=== PATIENT | male | born 1955 | race Caucasian/White ===

== ENCOUNTER 2017-01-26 06:24 | Observation (INO) | payer OTHER ==
--- NOTE | ~2017-01-26 | HP ---
History And Physical [address] [place]. [address] NAME: SEBLE SURESH : 51 STATUS : ADM Ruma PAT#: [id number] AGE: 61 ADM/REG DATE : 01/26/17 MR#: [id number] REPORT SERV DATE: 01/26/17 DICTATED BY: DATE: REPORT STATUS : Draft TRANSCRIBED BY: MODL DATE: 01/26/17 DATE OF ADMISSION: 01/26/2017 PRIMARY CARE PHYSICIAN: Denies having one. CHIEF COMPLAINT: Chest pain. HISTORY OF PRESENT ILLNESS: This is a very pleasant 61-year-old white male without any cardiac history who reports to have been woken up in the middle of the night with sharp, severe chest pain and pressure 10/10 across his chest that radiated to his left shoulder blade and left arm. He reports to have had some shortness of breath during his event. The patient received nitro in the ambulance and reports the pain had decreased but not completely resolved at that point. The patient denies having any nausea, vomiting, abdominal pain, diaphoresis, orthopnea, or edema. He reports that he had chest pain, 6/10, this morning. The nurse followed the chest pain protocol, and after three of nitroglycerin and two of morphine, his pain resolved and was down to 0/10. The patient denies any personal history of myocardial infarctions, strokes, DVT, or pulmonary embolus. The patient denies any recent fever or chills. No palpitations. No syncopal episodes. Denies PND or orthopnea. PAST MEDICAL HISTORY: He denies having any. PAST SURGICAL HISTORY: Tonsillectomy and adenoidectomy. 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 He is and has one child. He smokes about one pack every day and a half x40 years. He is a current smoker. He denies any alcohol use. He denies any illicit drug use. FAMILY MEDICAL HISTORY: He denies any cardiac history. REVIEW OF SYSTEMS: A 14-point review of systems was performed, significant for HPI. No other contributory diagnoses identified. ALLERGIES: PENTAZOCINE LACTATE FROM TALWIN, REACTION UNKNOWN. HOME MEDICATIONS: The patient denies taking any medications. PHYSICAL EXAMINATION: VITAL SIGNS: Blood pressure 177/73, heart rate 71, temperature 97.9, respirations 16, O2 saturation 93%. GENERAL: Cooperative, in no apparent distress. HEENT: Head normocephalic, anicteric. Normal EOM. PERRLA. No xanthelasma. Nares patent. Moist mucous membranes. History And Physical [address] [place]. [address] NAME: SEBLE SURESH : 51 STATUS : ADM Ruma PAT#: [id number] AGE: 61 ADM/REG DATE : 01/26/17 MR#: [id number] REPORT SERV DATE: 01/26/17 DICTATED BY: DATE: REPORT STATUS : Draft TRANSCRIBED BY: MODL DATE: 01/26/17 NECK: Trachea midline. No thyromegaly, JVD or bruits. RESPIRATORY: Clear to auscultation bilaterally anterior and posterior. Respirations even and unlabored. No wheezes, rhonchi or crackles. CARDIOVASCULAR: Regular rate and rhythm. No murmur, rub or gallop appreciated. No chest wall tenderness to palpation. CHEST: Mild chest tenderness to palpation. ABDOMEN: Obese, soft, nontender, nondistended, normal bowel sounds auscultated throughout. No masses or organomegaly. EXTREMITIES: No peripheral edema. DP/PT and radial pulses palpable bilaterally. No clubbing or cyanosis. SKIN: Warm, dry and intact. Normal turgor. No pallor or cyanosis. NEURO/PSYCH: Alert, oriented x3 with no acute distress. Affect appropriate to current situation. LABORATORY DATA: Troponin x2 0.04 and 0.03. Sodium 139, potassium 4.4, BUN 24, creatinine 1.10, GFR 82, glucose 96, calcium 9.6, magnesium 2.3. White blood cells 8.1, hemoglobin 13.1, hematocrit 39.6, platelets 296. INR 1.1. Chest x-ray shows no acute cardiopulmonary disease. EKG done on 01/26/2017 at 9:06 shows sinus rhythm with ST and T-wave abnormalities in the inferior and anterolateral leads. This could possibly be chronic. The patient did say that he was told at one point that he did have a heart attack in the past. The patient has not gone to a chemical laboratory scientist in the past or had any workup. classroom monitor shows sinus justin at 58. No ectopy, no arrhythmias, no pauses. CTA of the chest shows no CTA evidence of pulmonary embolus. No active pulmonary disease. Upper normal lymph nodes in the upper abdomen adjacent to the common hepatic artery branch of the celiac axis and in the precaval region, of uncertain clinical significance. ASSESSMENT AND PLAN: 1. Atypical chest pain. Cardiac risk factors include tobacco use. Troponins x2 have been less than 0.04. EKG shows possible chronic changes. The patient has been observed in the CP to rule out myocardial infarction with serial enzymes and serial EKGs. We will do another cardiac enzyme in the morning. If the cardiac enzymes are negative and no chest pain, we will plan an MPI in the morning. If the MPI is done and shows no ischemia or low risk, the patient may be discharged home. If the cardiac enzymes are abnormal in the morning or the patient has recurrent chest pain, we might plan a COA in the morning. If the MPI is done and if anything is suggestive of ischemia, Cardiology referral will be initiated. We will start the patient on aspirin 81 mg p.o. daily and Lipitor 40 mg p.o. daily. If the MPI is negative and shows no ischemia, the patient may be discharged home. We will try to arrange a followup with a PCP of the patient's choice in one to two weeks with all the studies being sent to that office. We will also check the patient's lipid panel. 2. Tobacco abuse. We discussed smoking cessation. 3. Hypertension. Blood pressure is 170s over 70s. We will start the patient on lisinopril 10 mg p.o. daily. We will also continue to monitor the patient's blood pressure. History And Physical [address] [address] NAME: SEBLE SURESH : 51 STATUS : ADM Ruma PAT#: [id number] AGE: 61 ADM/REG DATE : 01/26/17 MR#: [id number] REPORT SERV DATE: 01/26/17 DICTATED BY: DATE: REPORT STATUS : Draft TRANSCRIBED BY: MODIda DATE: 01/26/17 EKS/MODL Temitope Derw APN / [id number] CC: Janeth Swanson, MSN, CONCR[employer]ODUCTS DISPATCHER-BC
[2017-01-26 05:12] LABS: BASOPHILS 0.7 %; BASOPHILS ABSOLUTE 0.06 10/3/uL (0.0-0.16); EOSINOPHILS ABSOLUTE 0.16 10/3/uL (0.0-0.53); HEMATOCRIT 39.6 % (40.0-51.0); HEMOGLOBIN 13.1 g/dL (13.6-17.8); IMMATURE GRANULOCYTES 0.2 %; IMMATURE GRANULOCYTES ABSOLUTE 0.02 10/3/uL (0.0-0.11); LYMPHOCYTES ABSOLUTE 2.52 10/3/uL (0.67-4.30); MEAN CORPUS HGB CONC 33.1 g/dL (32.0-36.0); MEAN CORPUSCULAR HEMOGLOB 32.3 pg (26.0-34.0); MEAN CORPUSCULAR VOLUME 97.5 fL (80-100); MEAN PLATELET VOLUME 9.3 fL (9.2-13.0); MONOCYTES 4.3 %; MONOCYTES ABSOLUTE 0.35 10/3/uL (0.21-1.20); NEUTROPHILS 61.8 %; NEUTROPHILS ABSOLUTE 5.01 10/3/uL (2.02-8.40); PLATELET COUNT 296 10/3/uL (150-400); RBC DISTRIBUTION WIDTH 15.9 % (12.0-16.0); RED CELL COUNT 4.06 10/6/uL (4.7-6.1); WHITE BLOOD CELLS 8.1 10/3/uL (4.5-10.5)
[2017-01-26 05:13] LABS: MANUAL DIFF NO %
[2017-01-26 05:19] LABS: INTERNATIONAL NORMAL RATI 1.1 UNITS (-); PROTIME (NOT ORD) 14.4 SEC (12.0-14.5)
[2017-01-26 05:27] LABS: BUN (BLOOD UREA NITROGEN) 24 MG/DL (6-23); CALCIUM, SERUM 9.6 MG/DL (8.5-10.4); CHEST PAIN PROFILE TAT 0 Hrs 21 Mins; CHLORIDE, SERUM 107 MMOL/L (96-112); CO2 (CARBON DIOXIDE) 29 MMOL/L (24-34); GFR AFRICAN AMERICAN 82 ML/MIN (>=60); GFR NON AFRICAN AMERICAN 71 ML/MIN (>=60); GLUCOSE, SERUM 96 MG/DL (60-99); POTASSIUM, SERUM 4.4 MMOL/L (3.5-5.3); SODIUM, SERUM 139 MMOL/L (135-148); TROPONIN I 0.04 NG/ML (<0.05)
[2017-01-26 14:13] LABS: TROPONIN I 0.04 NG/ML (<0.05)
[2017-01-26 17:43] LABS: CHOL/HDL RATIO(NOT ORDER) 9.2 (0-5)
[2017-01-27 05:38] LABS: CPK 66 U/L (0-200); TROPONIN I 0.03 NG/ML (<0.05)
[2017-01-27 05:40] LABS: CK-MB 1.3 NG/ML
[2017-01-27] MEDS ORDERED: PRIN10 PO (10:18)
[2017-01-27] MEDS ORDERED: HALF81 PO (10:19)
[2017-01-27] MEDS ORDERED: PRAVAC PO (10:19)
== END 2017-01-27 11:46 | disposition home or self-care (01) ==
LOC: ER 06:24 → CDU1 07:45 → CDU2 07:59
PROVIDERS: Clinical Nurse Specialist; Hospitalist; Nurse Practitioner Family
DX: R07.89 Other chest pain (principal); I10 Essential (primary) hypertension; K21.9 Gastro-esophageal reflux disease without esophagitis; M19.90 Unspecified osteoarthritis, unspecified site; J44.9 Chronic obstructive pulmonary disease, unspecified; F17.210 Nicotine dependence, cigarettes, uncomplicated; Z88.8 Allergy status to other drugs, medicaments and biological substances; Z98.890 Other specified postprocedural states
CPT/HCPCS: 71010; 71275; 78452; 80048; 80061; 82550; 82553; 83735; 84484; 85025; 85610; 85730; 93005; 93017; 96374; 96375; 96376; 99285; A9270-GY; A9502; G0378; J0153; J2405; Q9967

== ENCOUNTER 2017-02-20 03:47 | Inpatient (IN) | payer OTHER ==
--- NOTE | ~2017-02-20 | CN ---
Consultation Report [facility] [address] [place]. [address] NAME: SEBLE MICHAEL : 51 STATUS : ADM IN PAT#: [id number] AGE: 61 ADM/REG DATE : 02/20/17 MR#: [id number] REPORT SERV DATE: 02/20/17 DICTATED BY: WYATT MEJÍA DATE: 02/20/17 REPORT STATUS : Draft TRANSCRIBED BY: MODIda DATE: 02/20/17 GI CONSULTATION DATE OF CONSULTATION: 02/20/2017 REASON FOR CONSULTATION: Evaluation and management of abdominal pain, abnormal CT scan with gastric wall thickening. HISTORY OF PRESENT ILLNESS: Mr. Michael is a pleasant 61-year-old male patient, who was admitted on the with a chief complaint of abdominal pain. He gives a history of symptom onset roughly six months ago. He began having episodic abdominal discomfort. He states he would have episodes where he would have severe epigastric pain with bloating, decreased appetite with some indigestion type symptoms. They would go away. He would feel fine for a period of time, only to have his symptoms recur. He notes that he has lost around 30 pounds since 08/2016. He states that he typically does not have nausea, but over the last three to four days, he has experienced some nausea with "hot liquid" going back up into his throat. Secondary to intense pain, he came into the hospital for further evaluation. He does have a history of recent admission in 01/2017 for chest pain and he states the symptoms are similar to what he had in January. He was worked up in the clinical decision unit by the Cardiac team for atypical chest pain. He was started on aspirin. He takes Lipitor and he is on a blood pressure medication now. He had a CT scan of the abdomen and pelvis when he was admitted without contrast, which showed a normal pancreas, no ductal dilatation. The appendix demonstrated a large amount of radiopaque material and gas. No inflammation. There was diverticulosis, but no diverticulitis. Also, had a mildly indistinct appearance of the gallbladder wall and some mild indistinctness around the stomach and pyloric channel as well as incidental umbilical fatty hernia and a focal short length 3-cm aneurysm. He did undergo a gallbladder ultrasound this morning, which showed cholelithiasis, otherwise, negative ultrasound of the gallbladder. His liver enzymes, total bilirubin 0.1, alkaline phosphatase 70, ALT 29, AST 35, lipase normal at 206. I have discussed with the patient. We will plan on upper endoscopy tomorrow. I did discuss the risks, benefits, alternatives, and complications for him to include, but not limited to risk of bleeding, perforation, infection, reaction to medications as well as cardiac and pulmonary side effects. He is agreeable to proceed. PAST MEDICAL HISTORY: Hypertension, elevated triglycerides, elevated cholesterol, cholelithiasis, COPD, with tobacco abuse. SOCIAL HISTORY: 60-70 pack year history, he states he smokes one pack per day. No alcohol or illicits. He does work at [employer]. FAMILY HISTORY: He denies any GI malignancies. SURGICAL HISTORY: Tonsillectomy, adenoidectomy. Consultation Report [address] [place]. [address] NAME: SEBLE MICHAEL : 51 STATUS : ADM IN [facility]#: [id number] AGE: 61 ADM/REG DATE : 02/20/17 MR#: [id number] REPORT SERV DATE: 02/20/17 DICTATED BY: WYATT MEJÍA DATE: 02/20/17 REPORT STATUS : Draft TRANSCRIBED BY: YANA DATE: 02/20/17 ALLERGIES: TALWIN. HOME MEDICATIONS: Aspirin, Proventil, and Pravachol. REVIEW OF SYSTEMS: A 10-point review of systems has been obtained with pertinent positives being addressed in the history of present illness. PERTINENT LABORATORY DATA: Sodium 134, potassium 4.1, BUN is 28, creatinine is 1.15. White count 9.1, hemoglobin 12.5, hematocrit 36.9, platelet count is 348 with an INR of 1.2. PHYSICAL EXAMINATION: VITAL SIGNS: Temperature 98, pulse 66, respirations 18, blood pressure is 117/64. GENERAL: Alert, male, resting in bed, with no focal deficits. In general, cooperative, in no apparent distress. Awake, alert, and oriented x3. HEAD, EARS, EYES, NOSE, AND THROAT: Anicteric. Pupils are equal, round, reactive to light and accommodation. Normocephalic and atraumatic. Teeth, poor halfway noted. NECK: No JVD. No palpable nodes. LUNGS: Decreased throughout. He has mild expiratory wheezing in the bilateral upper lobes with normal respiratory effort exhibited. CARDIOVASCULAR: Regular rate and rhythm. S1 and S2. No murmurs, rubs, gallops, S3, or S4 appreciated. ABDOMEN: Soft with mild tenderness to palpation in the epigastric region. Round abdomen. No distention. He has active bowel sounds. He has no rebound or guarding elicited on exam. EXTREMITIES: No edema. Normal distal pulses. SKIN: Warm, dry, and intact. ASSESSMENT: 1. Abdominal pain with abnormal CT scan with questionable gastric wall thickening, must rule out gastric mass. 2. Weight loss, 30 pounds, since August. 3. Tobacco abuse. 4. Cholelithiasis. PLAN: 1. Increase his PPI to b.i.d. 2. Clear liquid diet. N.p.o. after midnight. 3. EGD in the morning. 4. We will obtain morning labs. Other recommendations to follow endoscopy. SAMMY/YANA [place] Consultation Report [address] [place]. [address] NAME: SEBLE MICHAEL : 51 STATUS : ADM IN PAT#: [id number] AGE: 61 ADM/REG DATE : 02/20/17 MR#: [id number] REPORT SERV DATE: 02/20/17 DICTATED BY: WYATT MEJÍA DATE: 02/20/17 REPORT STATUS : Draft TRANSCRIBED BY: YANA DATE: 02/20/17 LUIS Saldana / [id number] CC: Misha Aguilar M.D.
--- NOTE | ~2017-02-20 | HP ---
History And Physical [facility] [address] [facility] [place]. [address] NAME: SEBLE MICHAEL : 51 STATUS : REG ER PAT#: [id number] AGE: 61 ADM/REG DATE : 02/20/17 MR#: [id number] REPORT SERV DATE: 02/20/17 DICTATED BY: MISHA MOYA DATE: 02/20/17 REPORT STATUS : Draft TRANSCRIBED BY: MODL DATE: 02/20/17 DATE OF ADMISSION: 02/20/2017 CHIEF COMPLAINT: Severe abdominal pain. HISTORY OF PRESENT ILLNESS: This is a 61-year-old male with a history of hypertension, cholelithiasis, COPD, who presents to the emergency room at [facility] with the above-mentioned complaint. History is obtained from the patient, his daughter who is at bedside, and reviewing data available on the [employer] system. According to available data, Mr. amin had been having ongoing pain in his chest or epigastric region for a while now. He was admitted here on 01/26/2017 with concerns for chest pain and had a full cardiac workup which did not reveal any acute cardiac issues. However, patient went home and continued to have pain, and according to him, the pain which was spasmodic has become almost continuous in the last week or so. According to his daughter, he has lost about 30-35 pounds since [place]. He has not had any nausea or vomiting with the pain. He has not had any hematemesis or hematochezia or hemoptysis. The pain is 10/10 on a pain scale. His daughter had called him a few days ago to speak with him and she had found him in a lot of pain, so she came over from [place] to get help for him. She decided to bring him to the emergency room. In the emergency room, initial workup revealed thickening of the distal gastric wall concerning for an ulcer or mass. There is also cholelithiasis but with a normal CBD as seen on a CT of the abdomen and pelvis. Hospitalist Service is asked to admit him for further evaluation and treatment. At the time of my evaluation, he denied any chest pain or palpitations. He did have severe epigastric and upper abdominal pain. No history of falls, loss of consciousness. No fevers, chills, nausea, vomiting, or diarrhea. No other history of recent travel or exposures other than those mentioned above. PAST MEDICAL HISTORY: Significant for hypertension, cholelithiasis, and COPD. SOCIAL HISTORY: He has about 60-70 pack year history of smoking, although he has cut back severely now. He denies alcohol use or recreational drug use. He works at [employer]. FAMILY HISTORY: Noncontributory. MEDICATIONS: At home were reviewed by me in the chart today and reordered by me. REVIEW OF SYSTEMS: As in history of present illness. All other systems were reviewed in detail and are quite unremarkable. PHYSICAL EXAMINATION: GENERAL: This is a pleasant 61-year-old, not in any acute distress. History And Physical [address] [address] NAME: SEBLE MICHAEL : 51 STATUS : REG ER PAT#: [id number] AGE: 61 ADM/REG DATE : 02/20/17 MR#: [id number] REPORT SERV DATE: 02/20/17 DICTATED BY: MISHA MOYA DATE: 02/20/17 REPORT STATUS : Draft TRANSCRIBED BY: YANA DATE: 02/20/17 HEENT: His head is atraumatic, normocephalic. He is alert, awake, oriented to time, place, and person. Pupils are equal, reacting to light and accommodating. External ocular muscles are intact. Membranes are moist and pink. Sclerae are nonicteric. NECK: Supple with no jugular venous distention, lymphadenopathy, or thyromegaly. LUNGS: Clear to auscultation with no wheezes, rubs, or crackles. HEART: Heart sounds were regular with no murmurs, rubs, or gallops. ABDOMEN: Soft. There is tenderness to palpation in the epigastric and both the upper quadrants. There is no rebound tenderness or guarding. EXTREMITIES: Showed no cyanosis, clubbing, or edema. NEUROLOGIC: Grossly intact. No focal sensory or motor deficits. Higher functions appeared intact. He was able to move all four extremities. VITAL SIGNS: Temperature was 98.4, pulse 85, respirations 16 a minute, blood pressure was 158/67, oxygen saturations were 97% breathing 2 L of oxygen via nasal cannula. LABORATORY DATA: Reviewed on the [employer] system showed a sodium of 134, potassium 4.1, chloride 103, and CO2 of 24. BUN was 28 with a creatinine of 1.15 and glucose was 99. His troponin was 0.02. CBC showed a white blood cell count of 9100, hemoglobin was 12.5, hematocrit 36.9, and platelet count was 348,000. Prothrombin time was 14.8 with an INR of 1.2. Films of the CT scan of the abdomen and pelvis done in the emergency room were reviewed by me on the PACS today, and radiology report that was called to Dr. Prieto in the emergency room was conveyed to me. According to Dr. Prieto, there was report of gallbladder stones with normal common bile duct. However, there is thickening of the distal gastric wall concerning for mass versus ulcer. A 12-lead EKG done in the emergency room was reviewed and interpreted by me. There is normal sinus rhythm with a rate of [address]-T changes. IMPRESSION: 1. Abdominal pain. 2. Gastric wall thickening, concerning for mass. 3. Hypertension. 4. Cholelithiasis. PLAN: We will admit Mr. Michael to the Hospitalist Service with telemetry. We will go ahead and consult Gastroenterology Service to evaluate him in the morning. Meanwhile, we will keep him n.p.o., start him on IV fluids. We will also give him proton pump inhibitors intravenously and establish intravenous pain control as well. We will also consult Surgery to evaluate him for acute cholecystitis. We will continue blood pressure control and other medications and place him on SCDs for DVT prophylaxis while he is here. Further recommendations will follow after Gastroenterology has had a chance to see him and possibly plan on an endoscopy. I have discussed the above plans with the patient and his daughter, questions were answered, and they are agreeable to the above recommendations. Hospitalist Service will be following him during his stay here. MR/YANA History And Physical [address] [address] NAME: SEBLE MICHAEL : 51 STATUS : REG ER PAT#: [id number] AGE: 61 ADM/REG DATE : 02/20/17 MR#: [id number] REPORT SERV DATE: 02/20/17 DICTATED BY: MISHA MOYA DATE: 02/20/17 REPORT STATUS : Draft TRANSCRIBED BY: YANA DATE: 02/20/17 Misha Moya M.D. / [id number]
--- NOTE | ~2017-02-20 | EGD ---
EGD REPORT [facility] [address] [address] NAME: JOSE ANTONIO MICHAEL : 51 STATUS : ADM IN PAT#: [id number] AGE: 61 ADM/REG DATE : 02/20/17 MR#: [id number] REPORT SERV DATE: 02/21/17 DICTATED BY: MAREK TONEY DATE: 02/21/17 REPORT STATUS : Draft TRANSCRIBED BY: [facility] DATE: 02/21/17 Endoscopy Center Patient Name: Jose Antonio Michael Date of : 1955 Attending MD: MAREK TONEY MD Procedure Date No Time: 02/21/2017 Procedure: Upper GI endoscopy Indications: Epigastric abdominal pain, Abnormal CT of the GI tract Referring MD: AMELIE PATTERSON Medicines: Monitored Anesthesia Care Complications: No immediate complications. Estimated blood loss: Minimal. Procedure: Pre-Anesthesia Assessment: - ASA Grade Assessment: III - A patient with severe systemic disease. After obtaining informed consent, the endoscope was passed under direct vision. Throughout the procedure, the patient's blood pressure, pulse, and oxygen saturations were monitored continuously. The GIF [id number] was introduced through the mouth, and advanced to the second part of duodenum. The upper GI endoscopy was accomplished without difficulty. The patient tolerated the procedure well. Findings: LA Grade B (one or more mucosal breaks greater than 5 mm, not extending between the tops of two mucosal folds) esophagitis with no bleeding was found at the gastroesophageal junction. One non-bleeding cratered gastric ulcer with no stigmata of bleeding was found at the pylorus. The lesion was 15 mm in largest dimension. Biopsies were taken with a cold forceps for Helicobacter pylori testing. Estimated blood loss was minimal. The examined duodenum was normal. The cardia and gastric fundus were normal on retroflexion. Impression: - LA Grade B reflux esophagitis. - Gastric ulcer with clean base. Biopsied. - Otherwise normal examination Recommendation: - Return patient to hospital hall for ongoing care. - Full liquid diet for 2 days. - Use Protonix (pantoprazole) 40 mg IV BID for 3 months. - Await pathology results. - Return to GI clinic in 10 weeks. EGD REPORT [address] [address] NAME: JOSE ANTONIO MICHAEL : 51 STATUS : ADM IN PAT#: [id number] AGE: 61 ADM/REG DATE : 02/20/17 MR#: [id number] REPORT SERV DATE: 02/21/17 DICTATED BY: MAREK TONEY DATE: 02/21/17 REPORT STATUS : Draft TRANSCRIBED BY: [employer] DATE: 02/21/17 Procedure Code(s): --- Professional --- 11666, Esophagogastroduodenoscopy, flexible, transoral; with biopsy, single or multiple Diagnosis Code(s): --- Professional --- K21.0, Gastro-esophageal reflux disease with esophagitis K25.9, Gastric ulcer, unspecified as acute or chronic, without hemorrhage or perforation R10.13, Epigastric pain R93.3, Abnormal findings on diagnostic imaging of other parts of digestive tract CPT copyright 2013 [employer] [place] [employer]. All rights reserved. The codes documented in this report are preliminary and upon clinical coder review may be revised to meet current compliance requirements. Marek Toney MD MAREK TONEY MD 02/21/2017 8:32 AM This report has been signed electronically. Number of Addenda: 0 Note Initiated On: 02/21/2017 8:03 AM Scope Withdrawal Time 0 hours 0 minutes 0 seconds [address] [place] [id number]
--- NOTE | ~2017-02-20 | CN ---
Consultation Report [facility] [address] [place]. [address] NAME: SEBLE MICHAEL : 51 STATUS : ADM IN PAT#: [id number] AGE: 61 ADM/REG DATE : 02/20/17 MR#: [id number] REPORT SERV DATE: 02/22/17 DICTATED BY: VICTOR MANUEL BRUNO DATE: 02/22/17 REPORT STATUS : Draft TRANSCRIBED BY: MODL DATE: 02/22/17 CARDIOLOGY CONSULTATION DATE OF CONSULTATION: 02/22/2017 REASON FOR CONSULTATION: Bradycardia, question of heart block. HISTORY OF PRESENT ILLNESS: Mr. Michael is a 61-year-old gentleman, admitted with abdominal pain. He underwent EGD by Gastroenterology showing grade B esophagitis and pyloric ulcer. He has been on IV Protonix. Recently, he had an observation stay for chest discomfort. At that time, he underwent a treadmill stress, which was negative for ischemia. Apparently, at the end of the procedure in the recovery phase, he did have a drop in his heart rate down to 35 beats per minute and this quickly passed. While he has been here on the monitor, we have demonstrated some episodes of sinus bradycardia as well as what appears to be type 1 second- degree AV block. There is a subtle HI prolongation prior to a P-wave with a dropped QRS. The patient is denying any profound symptoms, specifically presyncope or syncope. He has had some very mild dizziness, unclear if this is related to any rhythm issues. He did receive some pain medications in association with his abdominal discomfort. PAST MEDICAL HISTORY: Notable for a history of recent discovery of a pyloric ulcer, esophagitis, history of hypertension. HOME MEDICATIONS: Include lisinopril, Pravachol, and aspirin. FAMILY HISTORY: Noncontributory. Negative for premature coronary artery disease. SOCIAL HISTORY: History of tobacco abuse, negative for alcohol. REVIEW OF SYSTEMS: As noted above. All other systems reviewed and negative. PHYSICAL EXAMINATION: VITAL SIGNS: His heart rates at rest have ranged between 45 to 60 beats per minute, blood pressure is 135/68, respirations 16. GENERAL: Well developed, well nourished. He is in no acute distress. He still has some mild abdominal discomfort. He is denying any profound dizziness or lightheadedness. HEENT: No icterus. Good dentition. NECK: Supple. No masses or thyromegaly LUNGS: Breathing comfortably. No rales or wheezes. COR: Normal S1, S2. No S3 or S4. No murmurs, clicks, rubs. No JVD ABD: Soft, nondistended, nontender, no hepatosplenomegaly. EXT: No clubbing, cyanosis or edema. Peripheral pulses 2+/=bilaterally. SKIN: Warm and dry. No visible lesions. MS: Chest wall without deformity, no obvious clavicular fractures. Consultation Report [facility] [address] [place]. [address] NAME: SEBLE MICHAEL : 51 STATUS : ADM IN PAT#: [id number] AGE: 61 ADM/REG DATE : 02/20/17 MR#: [id number] REPORT SERV DATE: 02/22/17 DICTATED BY: VICTOR MANUEL BRUNO DATE: 02/22/17 REPORT STATUS : Draft TRANSCRIBED BY: MODIda DATE: 02/22/17 NEURO/PSYCH: Oriented X3. No anxiety or depression. IMAGING: EKG today showed a mild sinus bradycardia with a heart rate of 54 beats per minute, borderline first-degree AV block, QRS and QT intervals within normal limits. There is T- wave inversion laterally. This is unchanged from previous EKGs, question LVH with repolarization abnormality, but I cannot exclude ischemia. LABORATORY VALUES: Electrolytes, BUN, and creatinine, all within normal limits. IMPRESSION: We have been asked to see the patient due to bradycardia. This appears to be a combination of sinus bradycardia as well as what appears to be type 1 second-degree AV block. The patient is admitted with abdominal complaints. He has received some pain medications, question whether some of these might be a high vagal tone from his current abdominal complaints. He is not syncopal or presyncopal. I would recommend that we try to ambulate him today and see if his heart rate improves with ambulation and adrenergic stimulation. We can see whether he is significantly symptomatic with activity, especially if there is worsening bradycardia. Given his relatively young age, I would try to avoid a pacemaker unless it is absolutely necessary, but if on the other hand he does have symptoms that seem to correlate with continued bradycardia, whether the sinus bradycardia or symptomatic type 1 second-degree AV block, then he may be a candidate for a dual-chamber pacemaker. Again, I would try to avoid this unless it is absolutely necessary. AMALIA/MODL Victor Manuel Bruno M.D. / [id number] CC: Jennifer Reyes M.D. NO PCP
--- NOTE | ~2017-02-20 | DS ---
Discharge Summary [facility] [id number] [place]. [address] NAME: SEBLE SURESH : 51 STATUS : DIS IN PAT#: [id number] AGE: 61 ADM/REG DATE : 02/20/17 MR#: [id number] REPORT SERV DATE: 02/23/17 DICTATED BY: RAMO SLAUGHTER DATE: 02/23/17 REPORT STATUS : Draft TRANSCRIBED BY: MODL DATE: 02/23/17 ADMISSION DATE: 02/20/2017 DISCHARGE DATE: 02/23/2017 DIAGNOSES ON ADMISSION: 1. Abdominal pain with abnormal CT scan, questionable gastric wall thickening, rule out gastric mass. 2. Weight loss of 30 pounds since August. 3. Tobacco abuse. 4. Cholelithiasis. DIAGNOSES ON DISCHARGE: 1. Grade B esophagitis. 2. One nonbleeding cratered gastric ulcer with no stigmata of bleeding in the pylorus. The lesion was 15 mm in largest dimension. Impression: LA grade B reflux esophagitis, gastric ulcer with clean base, status post biopsy. 3. Sinus bradycardia with first-degree IV block, asymptomatic, evaluated by Dr. Cullen Beck. No need for pacemaker placement. 4. Cholelithiasis without cholecystitis. No need for cholecystectomy right now. Will need elective cholecystectomy when the gastric ulcer will heal. 5. Hypertension, controlled. CONSULTANTS ON THE CASE: 1. Supervisor Cell Maintenance, Dr. Russell. 2. Traffic Engineering Director, Dr. Cullen Beck. PROCEDURES: Upper endoscopy done on 02/21/[address] Russell. HISTORY OF PRESENT ILLNESS: Briefly, this is a 61-year-old male, who was admitted by my colleague, Dr. Aguilar on 02/20/2017 with severe abdominal pain and weight loss. For details, see history of present illness dictated by Dr. Aguilar on 02/20/2017. HOSPITAL COURSE: Briefly, the patient was admitted to the hospital. He was started on IV fluids and dressing room porter was consulted. The patient had a CT of the abdomen and pelvis done on admission on 02/20/2017, which revealed mildly indistinct appearance of the gallbladder wall. There is also some mild indistinctness around the stomach and pyloric channel. Cannot exclude early gallbladder disease or peptic ulcer disease. There is no evidence of perforation. There is diverticulosis. 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 May wish to consider further gallbladder ultrasound and workup on upper GI to exclude GI abnormality. Gallstone also noted not felt to represent wall calcification. 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 Basically, the patient underwent upper endoscopy and he was found to have ulcer. The patient was placed initially on clear liquid diet and advance to full liquid diet and he was on Protonix IV b.i.d. Also, it was recommended the patient to avoid nonsteroidal Discharge Summary [address] [id number] [facility] [place]. [address] NAME: SEBLE SURESH : 51 STATUS : DIS IN PAT#: [id number] AGE: 61 ADM/REG DATE : 02/20/17 MR#: [id number] REPORT SERV DATE: 02/23/17 DICTATED BY: RAMO SLAUGHTER DATE: 02/23/17 REPORT STATUS : Draft TRANSCRIBED BY: YANA DATE: 02/23/17 antiinflammatories and to avoid Goody's Powders as well and the patient understands that he should not take anymore Goody's Powders. The patient needs to follow up with Gastroenterology, Dr. Russell's group, Dr. Sol, or others in two weeks, and he will need repeat upper endoscopy as well and he needs to follow up with biopsies. Also, the patient had abnormal cardiac telemetry strip during this hospitalization and there were some pauses on the telemetry, but the patient was asymptomatic. He did not have any dizziness and he did not have any episodes of consciousness loss. We consulted Dr. Cullen Beck, custom designer, who evaluated this patient and we will observe the patient also for two additional days for this reason. Dr. Beck did not recommend any pacemaker placement right now because the patient is asymptomatic and he identified the changes on the telemetry sinus bradycardia or type 1 second-degree AV block probably [place]. He did not recommend any pacemaker placement unless the patient is symptomatic. The patient as I dictated above was seen for two additional days. We walked him, he was not symptomatic, he did have any dizziness, so Dr. Beck this morning recommended the patient to be discharged home and he will need to follow up with his primary care physician, Dr. Foley as well as with Dr. Cullen Beck in two to three weeks. If he will have any symptoms, then he will need to have a pacemaker placement. His blood pressure has been controlled in the normal range. He never had hypotension while inpatient. His anemia was also stable. His hemoglobin on 02/21/2017 was 11.1, on 02/22/2017 was 11.5, on 02/23/2017 was 11.3. He tolerated his diet. The patient also was informed that he has abdominal aneurysm, which is 3 cm in size and needs to followed up periodically by his primary care physician to check the size of it. The patient was recommended to avoid nonsteroidal antiinflammatories, to avoid Goody's Powder and to hold his aspirin until the ulcer will heal. The patient was given prescription for Protonix 40 mg p.o. b.i.d. as well as he was recommended to continue his home lisinopril at the dose 10 mg a day and pravastatin 20 mg daily. The patient to measure his blood pressure at home three times daily and his heart rate as well and to follow up with his primary care physician next week. Recheck his blood pressure. If he will have any symptoms or dizziness, he needs to be referred to custom designer, as well as the patient was told not to drive, not to climb on ladders, and also he was given note for work. The patient to stay at home for one week. He needs to see Dr. Kaufman in one week and Dr. Kaufman his primary care physician will make a decision when he needs to go back to work. This patient was admitted by Dr. Aguilar, then he was seen by Dr. Crook on 02/20/2017 and 02/21/2017. I saw this patient on 02/22/2017 and 02/23/2017. I spent 45 minutes on discharge. The patient was discharged in a stable condition. Everything was discussed with the patient and his family. DICTATED BY: Jumana Quinones/YANA Discharge Summary [address] [address] NAME: SEBLE SURESH : 51 STATUS : DIS IN PAT#: [id number] AGE: 61 ADM/REG DATE : 02/20/17 MR#: [id number] REPORT SERV DATE: 02/23/17 DICTATED BY: RAMO SLAUGHTER DATE: 02/23/17 REPORT STATUS : Draft TRANSCRIBED BY: YANA DATE: 02/23/17 Ramo Slaughter M.D. / [id number] CC: Jumana Quinones M.D. William M. Cooney, MD Gregory Olds, MD
[2017-02-20 03:31] LABS: BASOPHILS 0.3 %; BASOPHILS ABSOLUTE 0.03 10/3/uL (0.0-0.16); EOSINOPHILS 3.2 %; EOSINOPHILS ABSOLUTE 0.29 10/3/uL (0.0-0.53); HEMATOCRIT 36.9 % (40.0-51.0); HEMOGLOBIN 12.5 g/dL (13.6-17.8); IMMATURE GRANULOCYTES 0.2 %; IMMATURE GRANULOCYTES ABSOLUTE 0.02 10/3/uL (0.0-0.11); LYMPHOCYTES 30.2 %; LYMPHOCYTES ABSOLUTE 2.75 10/3/uL (0.67-4.30); MANUAL DIFF NO %; MEAN CORPUS HGB CONC 33.9 g/dL (32.0-36.0); MEAN CORPUSCULAR HEMOGLOB 32.3 pg (26.0-34.0); MEAN CORPUSCULAR VOLUME 95.3 fL (80-100); MEAN PLATELET VOLUME 8.7 fL (9.2-13.0); MONOCYTES 4.3 %; MONOCYTES ABSOLUTE 0.39 10/3/uL (0.21-1.20); NEUTROPHILS 61.8 %; NEUTROPHILS ABSOLUTE 5.64 10/3/uL (2.02-8.40); PLATELET COUNT 348 10/3/uL (150-400); RBC DISTRIBUTION WIDTH 15.1 % (12.0-16.0); RED CELL COUNT 3.87 10/6/uL (4.7-6.1); WHITE BLOOD CELLS 9.1 10/3/uL (4.5-10.5)
[2017-02-20 03:38] LABS: INTERNATIONAL NORMAL RATI 1.2 UNITS (-); PARTIAL THROMBO TIME 36.4 SEC (22.5-37.2); PROTIME (NOT ORD) 14.8 SEC (12.0-14.5)
[2017-02-20 03:46] LABS: ALBUMIN 3.6 G/DL (3.5-5.0); ALKALINE PHOSPHATASE 70 U/L (45-117); CALCIUM, SERUM 9.1 MG/DL (8.5-10.4); CHEST PAIN PROFILE TAT 0 Hrs 19 Mins; CHLORIDE, SERUM 103 MMOL/L (96-112); CREATININE 1.15 MG/DL (0.70-1.30); GFR AFRICAN AMERICAN 78 ML/MIN (>=60); GFR NON AFRICAN AMERICAN 67 ML/MIN (>=60); GLUCOSE, SERUM 99 MG/DL (60-99); POTASSIUM, SERUM 4.1 MMOL/L (3.5-5.3); SGOT(AST) 35 U/L (5-40); SGPT(ALT) 29 U/L (5-65); SODIUM, SERUM 134 MMOL/L (135-148); TOTAL BILIRUBIN 0.1 MG/DL (0-1.2); TOTAL PROTEIN 8.3 G/DL (6.0-8.5); TROPONIN I <0.02 NG/ML (<0.05)
[2017-02-20 03:47] LABS: BUN (BLOOD UREA NITROGEN) 28 MG/DL (6-23); CO2 (CARBON DIOXIDE) 24 MMOL/L (24-34); DIRECT BILIRUBIN < 0.1 MG/DL (0.0-0.4)
[~2017-02-20 03:47] MED LIST: HALF81 PO; PRAVAC PO; PRIN10 PO
[2017-02-21 06:37] LABS: BASOPHILS 0.4 %; BASOPHILS ABSOLUTE 0.03 10/3/uL (0.0-0.16); EOSINOPHILS 3.4 %; EOSINOPHILS ABSOLUTE 0.25 10/3/uL (0.0-0.53); HEMATOCRIT 34.1 % (40.0-51.0); HEMOGLOBIN 11.1 g/dL (13.6-17.8); IMMATURE GRANULOCYTES 0.3 %; IMMATURE GRANULOCYTES ABSOLUTE 0.02 10/3/uL (0.0-0.11); LYMPHOCYTES 34.8 %; LYMPHOCYTES ABSOLUTE 2.53 10/3/uL (0.67-4.30); MEAN CORPUS HGB CONC 32.6 g/dL (32.0-36.0); MEAN CORPUSCULAR HEMOGLOB 31.5 pg (26.0-34.0); MEAN CORPUSCULAR VOLUME 96.9 fL (80-100); MEAN PLATELET VOLUME 8.8 fL (9.2-13.0); MONOCYTES 4.3 %; MONOCYTES ABSOLUTE 0.31 10/3/uL (0.21-1.20); NEUTROPHILS 56.8 %; NEUTROPHILS ABSOLUTE 4.14 10/3/uL (2.02-8.40); PLATELET COUNT 292 10/3/uL (150-400); RBC DISTRIBUTION WIDTH 15.6 % (12.0-16.0); RED CELL COUNT 3.52 10/6/uL (4.7-6.1); WHITE BLOOD CELLS 7.3 10/3/uL (4.5-10.5)
[2017-02-21 06:39] LABS: INTERNATIONAL NORMAL RATI 1.2 UNITS (-); PROTIME (NOT ORD) 14.8 SEC (12.0-14.5)
[2017-02-21 06:40] LABS: MANUAL DIFF NO %
[2017-02-21 06:47] LABS: ALBUMIN 3.3 G/DL (3.5-5.0); BUN (BLOOD UREA NITROGEN) 22 MG/DL (6-23); CALCIUM, SERUM 8.7 MG/DL (8.5-10.4); CHLORIDE, SERUM 106 MMOL/L (96-112); CO2 (CARBON DIOXIDE) 22 MMOL/L (24-34); CREATININE 1.03 MG/DL (0.70-1.30); GFR AFRICAN AMERICAN 89 ML/MIN (>=60); GFR NON AFRICAN AMERICAN 77 ML/MIN (>=60); GLUCOSE, SERUM 76 MG/DL (60-99); PHOSPHORUS, SERUM 2.2 MG/DL (2.5-4.5); POTASSIUM, SERUM 4.1 MMOL/L (3.5-5.3); SODIUM, SERUM 136 MMOL/L (135-148)
[2017-02-21 07:01] LABS: PREALBUMIN 29.2 MG/DL (17.0-43.0)
[2017-02-22 12:13] LABS: HEMATOCRIT 35.1 % (40.0-51.0); HEMOGLOBIN 11.5 g/dL (13.6-17.8)
[2017-02-23 07:07] LABS: HEMATOCRIT 34.5 % (40.0-51.0); HEMOGLOBIN 11.3 g/dL (13.6-17.8)
[2017-02-23 07:18] LABS: CALCIUM, SERUM 8.4 MG/DL (8.5-10.4); CHLORIDE, SERUM 105 MMOL/L (96-112); CO2 (CARBON DIOXIDE) 24 MMOL/L (24-34); CREATININE 0.87 MG/DL (0.70-1.30); GFR AFRICAN AMERICAN 106 ML/MIN (>=60); GFR NON AFRICAN AMERICAN 92 ML/MIN (>=60); POTASSIUM, SERUM 3.6 MMOL/L (3.5-5.3); SODIUM, SERUM 135 MMOL/L (135-148)
[2017-02-23 07:19] LABS: BUN (BLOOD UREA NITROGEN) 9 MG/DL (6-23); GLUCOSE, SERUM 107 MG/DL (60-99)
[2017-02-23] MEDS ORDERED: PROTONIX PO (12:56)
== END 2017-02-23 16:13 | disposition home or self-care (01) | DRG 384 ==
LOC: ER 03:47 → ER/OF 06:44 → 2SO 09:19
PROVIDERS: Emergency Medicine; Hospitalist; Internal Medicine; Internal Medicine Gastroenterology; Nurse Practitioner Family
PROC: 0DB48ZX Excision of Esophagogastric Junction, Via Natural or Artificial Opening Endoscopic, Diagnostic (ICD-10-PCS; principal; 2017-02-21 08:00)
DX: K25.9 Gastric ulcer, unspecified as acute or chronic, without hemorrhage or perforation (principal); I44.1 Atrioventricular block, second degree; I95.9 Hypotension, unspecified; R19.00 Intra-abdominal and pelvic swelling, mass and lump, unspecified site; K21.0 Gastro-esophageal reflux disease with esophagitis; I10 Essential (primary) hypertension; K80.20 Calculus of gallbladder without cholecystitis without obstruction; D64.9 Anemia, unspecified; E78.00 Pure hypercholesterolemia, unspecified; J44.9 Chronic obstructive pulmonary disease, unspecified; R00.1 Bradycardia, unspecified; K57.30 Diverticulosis of large intestine without perforation or abscess without bleeding; K42.9 Umbilical hernia without obstruction or gangrene; I71.4 Abdominal aortic aneurysm, without rupture; R63.4 Abnormal weight loss; Z72.0 Tobacco use; Z68.32 Body mass index [BMI] 32.0-32.9, adult; Z87.891 Personal history of nicotine dependence; Z98.890 Other specified postprocedural states
CPT/HCPCS: 71010; 74176; 76705; 80048; 80069; 80076; 83690; 83735; 84134; 84484; 85014; 85018; 85025; 85610; 85730; 88305; 88342; 93005; 96374; 96375; 99285; A9270-GY; C9113; J1170; J2405